=== PATIENT | female | born 1990 | race Caucasian/White ===

== ENCOUNTER 2021-11-06 08:11 | Emergency (ER) | payer SELFPAY ==
[~2021-11-06] VITALS: Ht 180.3 cm; Wt 72.6 kg
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
--- NOTE | 2021-11-06 08:38 | NUR ---
DR MELENDEZ AND EDNA BUCHANAN AT BEDSIDE FOR SAMUELAL
--- NOTE | 2021-11-06 08:47 | NUR ---
WAIVER SIGNED BY PATIENT AND PLACED IN CHART
[2021-11-06] MEDS ORDERED: CYCL5TAB PO ×2 (09:04→12:21)
--- NOTE | 2021-11-06 09:04 | NUR ---
IV ESTABLISHED L UPPER ARM 20G. LABS DRAWN AND COLLECTED AT BEDSIDE.
[2021-11-06 09:13] LABS: BASOPHILS % (AUTO) 0.1 % (0.0-2.0); HEMATOCRIT 42 % (33-45); LYMPHOCYTES # (AUTO) 1.4 K/uL (0.8-4.8); LYMPHOCYTES % (AUTO) 19.8 % (20.0-44.0); MEAN CORPUSCULAR HGB CONC 33 g/dl (31.0-36.0); MEAN CORPUSCULAR VOLUME 87 fL (82-100); MONOCYTES # (AUTO) 0.3 K/uL (0.1-1.30); MONOCYTES % (AUTO) 4.4 % (2.0-12.0); NEUTROPHILS # (AUTO) 5.4 K/uL (1.8-8.9); NEUTROPHILS % (AUTO) 74.7 % (43.0-81.0); PLATELET COUNT (AUTO) 276 K/uL (150-450); RED BLOOD CELL COUNT(AUTO) 4.84 MIL/uL (4.0-5.2); WHITE BLOOD COUNT (AUTO) 7.3 K/uL (4.3-11.0)
--- NOTE | 2021-11-06 09:18 | NUR ---
URINE SAMPLE COLLECTED AND SENT
[2021-11-06 09:55] LABS: BILIRUBIN,URINE NEGATIVE (NEGATIVE); COLOR,URINE YELLOW (YELLOW); LEUKOCYTE ESTERASE ,URINE TRACE (NEGATIVE); NITRITE, URINE NEGATIVE (NEGATIVE); PROTEIN,URINE NEGATIVE (NEGATIVE); UGLUCOSE NEGATIVE (NEGATIVE); UROBILINOGEN,URINE 0.2 EU/dL (0.2)
[2021-11-06 10:12] LABS: CALCIUM, SERUM 8.5 mg/dL (8.5-10.1); CREATININE 0.8 mg/dL (0.6-1.3); POTASSIUM 4.2 mmol/L (3.5-5.1)
--- NOTE | 2021-11-06 10:14 | NUR ---
FOLLOWED UP WITH LAB REGARDING PT'S CBC, LAB STATED IT WILL BE REPORTEDWITHIN 10 MINUTES.
[2021-11-06 10:18] LABS: ALBUMIN 3.7 g/dL (3.4-5.0); BILIRUBIN,DIRECT 0.1 mg/dL (0.0-0.2); BILIRUBIN,TOTAL 0.3 mg/dL (0.2-1.0); TOTAL PROTEIN, SERUM 7.1 g/dL (6.4-8.2)
[2021-11-06] MEDS ORDERED: IV NS 0.9% 250 ML IV ONE (10:21)
[2021-11-06] MEDS ORDERED: IOHEXOL-300 100 ML VIAL IV ONE (10:21)
[2021-11-06] MEDS ORDERED: CT SWABBABLE VALVE TRANS SET 1 EA INFUS.SET MC ONE (10:21)
--- NOTE | 2021-11-06 10:31 | NUR ---
PT BEING TAKEN TO CT VIA WHEELCHAIR.
[2021-11-06] MEDS ORDERED: MORPHINE SULFATE INJ 4 MG/ML DISP.SYRIN ONE (10:41)
[2021-11-06] MEDS ORDERED: ONDANSETRON HCL/PF 4 MG/2 ML VIAL ONE (10:41)
--- NOTE | 2021-11-06 10:59 | NUR ---
THE PATIENT IS BACK FROM CT VIA W/CHAIR
[2021-11-06 11:00] LABS: BACTERIA,URINE Few /HPF (None Seen); SQUAMOUS EPITHELIAL CELL,UR Few /HPF (None Seen)
[2021-11-06] MEDS ORDERED: MORPHINE SULFATE INJ 4 MG/ML DISP.SYRIN IV ONE (11:00)
[2021-11-06] MEDS ORDERED: ONDANSETRON HCL/PF 4 MG/2 ML VIAL IV ONE (11:00)
--- NOTE | 2021-11-06 11:00 | NUR ---
PT RETURNED FROM CT VIA WHEELCHAIR
[2021-11-06] MEDS ORDERED: KETOROLAC TROMETHAMINE INJ 30 MG/ML VIAL IV ONE (11:30)
[2021-11-06] MEDS ORDERED: ACETAMINOPHEN 325 MG TABLET PO ONE (11:30)
[2021-11-06] MEDS ORDERED: KETOROLAC TROMETHAMINE 15 MG/ML VIAL ONE (11:42)
[2021-11-06] MEDS ORDERED: ACETAMINOPHEN 325 MG TABLET ONE (11:42)
--- NOTE | 2021-11-06 12:26 | NUR ---
IV removed. Catheter intact and site benign. Pressure and 4x4 applied to site. No bleeding noted.Patient discharged to home in stable condition. Written and verbal after care instructions given. Patient verbalizes understanding of instruction.
[2021-11-06 12:27] VITALS: BP 132/82
== END 2021-11-06 12:28 | disposition home or self-care (01) ==
LOC: ER 08:17
DX: S63.633A Sprain of interphalangeal joint of left middle finger, initial encounter (principal); S16.1XXA Strain of muscle, fascia and tendon at neck level, initial encounter; S46.911A Strain of unspecified muscle, fascia and tendon at shoulder and upper arm level, right arm, initial encounter; R10.30 Lower abdominal pain, unspecified; Z60.2 Problems related to living alone; Z79.899 Other long term (current) drug therapy; V49.59XA Passenger injured in collision with other motor vehicles in traffic accident, initial encounter; Y93.89 Activity, other specified; Y92.413 State road as the place of occurrence of the external cause; Y99.8 Other external cause status
CPT/HCPCS: 36415; 70450; 71260; 72125; 73130; 74177; 80048; 80076; 81001; 84703; 85025; 85730; 96374; 96375; 99285; J1885; J2270; J2405; J7050; Q9967

== ENCOUNTER 2021-12-13 23:09 | Emergency (ER) | payer SELFPAY ==
[~2021-12-13] VITALS: Ht 182.9 cm; Wt 72.6 kg
[~2021-12-13 23:09] MED LIST: CYCL5TAB PO
[2021-12-13 23:28] VITALS: BP 109/68
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
[2021-12-13] MEDS ORDERED: TDAP [DIPH/PERTUSSIS/TET] 0.5 ML VIAL IM ONE ×2 (23:30→23:31)
[2021-12-13] MEDS ORDERED: ONDANSETRON 4 MG TAB.RAPDIS ONE (23:39)
[2021-12-13] MEDS ORDERED: LIDOCAINE 1%-EPI 1:100,000 20 ML VIAL ONE (23:57)
[2021-12-14] MEDS ORDERED: ONDANSETRON 4 MG TAB.RAPDIS SL ONE
[2021-12-14] MEDS ORDERED: LIDOCAINE HCL/MPF 1% 30 ML VIAL IJ ONE (00:02)
--- NOTE | 2021-12-14 02:20 | NUR ---
DR. RUSLAN MARTINES AT PT'S BEDSIDE FOR WOUND CARE
--- NOTE | 2021-12-14 02:31 | NUR ---
DRESSING APPLIED TO WOUND AND APPLIED SPLINT TO MIDDLE FINGER RIGHT HAND.
--- NOTE | 2021-12-14 02:32 | NUR ---
Patient discharged to home in stable condition. Written and verbal after care instructions given. Patient verbalizes understanding of instruction.
== END 2021-12-14 02:33 | disposition home or self-care (01) ==
LOC: ER 23:13
DX: S61.411A Laceration without foreign body of right hand, initial encounter (principal); Z60.2 Problems related to living alone; W45.8XXA Other foreign body or object entering through skin, initial encounter; Y93.89 Activity, other specified; Y92.89 Other specified places as the place of occurrence of the external cause; Y99.8 Other external cause status
CPT/HCPCS: 12001; 73130; 90471; 90715; 99283; J3490 ×2; Q0162